=== PATIENT | female | born 1990 | race Asian ===

== ENCOUNTER → 2016-08-01 | Outpatient (CLI) | payer OTHER ==
[~2016-08-01] MED LIST: PRENTAB26 PO
--- NOTE | 2016-08-01 15:22 | MAMMOGRAPHY REPORT ---
ULTRASOUND OF RIGHT BREAST: 08/01/2016 CLINICAL HISTORY: The patient is currently breast-feeding, and reports a new palpable lump in the [facility] axilla at approximately 10 days. Her mother was diagnosed with breast cancer at age 46. COMPARISON: No prior exams were available for comparison. TECHNIQUE: Real-time targeted ultrasound of the right breast was performed. FINDINGS: Real-time, high resolution targeted ultrasound was performed of the area of the palpable lump pointe d out by the patient in the right axilla. At the site of the palpable lump there is a superficial o tessie circumscribed anechoic mass which contains a few internal septations, measuring 7 x 3 x 5 mm. T he mass likely represents a complicated cyst. Given the family history of breast cancer and given t he complicated nature of the cyst, recommend sampling for further evaluation. Given the risk of a m ilk fistula with core needle biopsy, consider ultrasound guided aspiration and sending the fluid to cytology. IMPRESSION: ACR BI-RADS CATEGORY 4A: LOW SUSPICION FOR MALIGNANCY - FOLLOW-UP RECOMMENDED Circumscribed 7 mm mass at the site of the palpable right axillary lump, which likely represents a c omplicated cyst. Given the family history of breast cancer and location within the axilla, recommen d ultrasound-guided aspiration with possible conversion to core needle biopsy for further evaluation . A phone call was made to the physician's office to confirm faxed results were received. The patient was verbally notified of the results. She tent[facility] scheduled the biopsy [facility] It was discussed with the patient that I would prefer aspiration due to the risk of possibl e milk fistula with core needle biopsy, therefore we will likely aspirate the mass and send the flui d to cytology. Katelynn Sotomayor M.D. /:08/01/2016 14:48:30 Heating Engineer: Marni BROWNE(Ken)(Scott), [facility] letter sent: Abnormal 4/5 BI-RADS Code: ACR BI-RADS Category 4A: Low Suspicion For Malignancy
== END | disposition home or self-care (01) ==
LOC: C.MAMM 13:29
PROVIDERS: ATTEND Nurse Practitioner Women's Health
DX: N63 Unspecified lump in breast (principal)

== ENCOUNTER → 2016-08-07 | Outpatient (CLI) | payer OTHER ==
--- NOTE | 2016-08-09 09:04 | MAMMOGRAPHY REPORT ---
THIS REPORT HAS BEEN AMENDED. ASPIRATION RIGHT BREAST: 08/07/2016 CLINICAL HISTORY: 25-year-old lactating woman with a palpable complex cystic mass in the right axill a. She presents for cyst aspiration versus core biopsy. COMPARISON: Comparison is made to exam dated: 08/01/2016 ultrasound - [facility]. PATIENT CONSENT: After explaining the risks, benefits and alternatives of the procedure to the patie nt, informed consent was obtained verbally and in writing. Specific risks include: bleeding, infecti on and puncture of adjacent structure. A time out was preformed in the right axilla was agreed as th e site for cyst aspiration. PROCEDURE DESCRIPTION: The complex prominently cystic mass within internal nonvascular septations in the right axilla was again identified. This is amenable to ultrasound guided cyst aspiration. 1% buffered lidocaine without epinephrine was administered subcutaneously as local anesthesia. A 22-ga uge needle was advanced to the site of the mass and aspiration was performed. The cyst resolved com pletely and less than 1 mL of blood-tinged fluid was aspirated and rinsed in CytoLyt. An additional pass with a 22-gauge needle was performed at the prior site of the cyst and the samples were also r insed in CytoLyt, then sent to the pathology department for cytologic analysis. The patient tolerat ed the procedure well and there was no immediate consultation. Hemostasis was achieved after manual compression. The patient left the department in satisfactory condition. IMPRESSION: ASPIRATION Status post aspiration to resolution of a probable complicated cyst palpable within the right axilla . The patient will receive notification of the cytology results from her referring physician. Tarsha Chandler M.D. ay/:08/07/2016 10:00:00 Boat Outfitter: [place] BROWNE(Ken)(M), [facility] AMENDMENT: 08/15/2016 Tarsha Chandler M.D. Cytology results from the ultrasound-guided cyst aspiration of a palpable mass in the right axilla y ielded benign appearing ductal type epithelium with apocrine metaplasia and cyst contents. The spec imen contains scattered groups of benign-appearing ductal type epithelium. One group hasn't apocrin e appearance. While it shows nuclear enlargement and prominent nuclear like, the changes are within the spectrum of apocrine metaplasia. No malignant appearing cells are noted. The findings could b e consistent with ectopic breast tissue or an adnexal neoplasm such as hidrocystoma. The pathology results are concordant with the imaging appearance. During the procedure, the cyst resolved after aspiration and it is presumed to represent a cyst with in ectopic breast tissue. However, continued clinical follow-up is recommended and if there is any new palpable concern in this location, would recommend a repeat targeted ultrasound.
== END | disposition home or self-care (01) ==
LOC: C.MAMM 08:49
PROVIDERS: ATTEND Nurse Practitioner Women's Health
DX: N60.81 Other benign mammary dysplasias of right breast (principal)